=== PATIENT | female | born 1980 | race African-American/Black ===

== ENCOUNTER → 2020-10-26 | Outpatient (CLI) | payer OTHER ==
[~2020-10-26] MED LIST: CITA20TA9 PO; GABA600T7 PO; OXYC1TAB19 PO
== END ==
LOC: LAB 14:03
PROVIDERS: ATTEND Specialist
DX: Z01.812 Encounter for preprocedural laboratory examination (principal); Z20.828 Contact with and (suspected) exposure to other viral communicable diseases
CPT/HCPCS: U0003